=== PATIENT | female | born 2005 ===

== ENCOUNTER → 2025-03-22 | Outpatient (REF) | payer OTHER ==
[2025-03-22 16:09] LABS: URINE PREG TEST NEGATIVE (NEGATIVE)
[2025-03-22 17:16] LABS: Trichomonas vaginalis (AMP) NOT DETECTED (NEGATIVE)
[2025-03-22 17:31] LABS: BASO # 0.0 10^3/uL (0.0-0.2); BASO % 0.7 % (0.0-1.0); EOS # 0.3 10^3/uL (0.0-0.5); EOS % 4.7 % (0.0-3.0); LYMPH # 1.9 10^3/uL (1.5-5.0); LYMPH % 31.3 % (24.0-44.0); MONO # 0.4 10^3/uL (0.0-0.8); MONO % 5.9 % (2.0-8.0); NEUTROPHILS # 3.4 10^3/uL (1.5-8.5); NEUTROPHILS % 57.2 % (36.0-66.0); PLATELET COUNT, AUTOMATED 380 10^3/uL (150-450)
[2025-03-22 17:39] LABS: GC DNA AMPLIFICATION NEGATIVE (NEGATIVE)
[2025-03-22 17:41] LABS: ESTIMATED AVERAGE GLUCOSE 108.0 MG/DL (60-110)
[2025-03-22 17:52] LABS: IRON (FE) 14 UG/DL (50-170)
[2025-03-22 17:56] LABS: ALT/SGPT 22 U/L (7.0-40); AST/SGOT 18 U/L (<34); CALCIUM LEVEL 9.1 MG/DL (8.5-10.1); CARBON DIOXIDE LEVEL 27 MMOL/L (20-31); CHLORIDE LEVEL 107 MMOL/L (98-107); CHOLESTEROL LEVEL 137 MG/DL (<200); CHOLESTEROL RISK RATIO 2.47 (<5); CREATININE FOR GFR 0.72 MG/DL (0.55-1.30); GLOMERULAR FILTRATION RATE > 90.0 (>60); LDL CHOLESTEROL 70.7 MG/DL (<100); NON-HDL-C 81.7 MG/DL; POTASSIUM SERUM 4.4 MMOL/L (3.5-5.1); SODIUM LEVEL 142 MMOL/L (136-145); TOTAL 25(OH) VITAMIN D 6.9 NG/ML (20.0-100.0); TRIGLYCERIDES LEVEL 55 MG/DL (<150)
[2025-03-22 18:26] LABS: HIV 1&2 SCREEN NEGATIVE (NEGATIVE)
[2025-03-22 18:34] LABS: HEPATITIS C VIRUS ABY INDEX < 0.02 INDEX (<0.8)
== END ==
LOC: M LAB REF 15:02
PROVIDERS: ATTEND Student in an Organized Health Care Education/Training Program
DX: A64 Unspecified sexually transmitted disease (principal); Z68.21 Body mass index [BMI] 21.0-21.9, adult; N92.0 Excessive and frequent menstruation with regular cycle

== ENCOUNTER → 2025-05-20 | Outpatient (REF) | payer OTHER ==
[2025-05-20 15:52] LABS: BASO # 0.0 10^3/uL (0.0-0.2); BASO % 0.7 % (0.0-1.0); EOS # 0.1 10^3/uL (0.0-0.5); EOS % 1.9 % (0.0-3.0); LYMPH # 1.7 10^3/uL (1.5-5.0); LYMPH % 29.4 % (24.0-44.0); MONO # 0.6 10^3/uL (0.0-0.8); MONO % 10.0 % (2.0-8.0); NEUTROPHILS # 3.4 10^3/uL (1.5-8.5); NEUTROPHILS % 57.8 % (36.0-66.0); PLATELET COUNT, AUTOMATED 303 10^3/uL (150-450)
[2025-05-20 16:00] LABS: IRON (FE) 99.0 UG/DL (50-170)
== END ==
LOC: M LAB REF 14:53
PROVIDERS: ATTEND Student in an Organized Health Care Education/Training Program
DX: D50.9 Iron deficiency anemia, unspecified (principal)